=== PATIENT | male | born 1965 | race Caucasian/White ===

== ENCOUNTER → 2020-11-02 12:41 | Outpatient (CLI) | payer OTHER, SELFPAY ==
--- NOTE | 2020-11-02 | DI.RAD.S_ITS ---
PROCEDURE: XR CHEST 2V INDICATIONS: COUGH TECHNIQUE: 2 views of the chest were acquired. COMPARISON: None. FINDINGS: Surgical changes and devices: None. Lungs and pleura: Lungs are clear, aside from airspace opacity involving the left lower lobe.. No pleural effusions or pneumothorax. Mediastinum: Mediastinal contours are normal. Heart size is normal. Bones and chest wall: No suspicious bony abnormalities. Soft tissues appear unremarkable. IMPRESSION: Airspace opacity involving the left lower lobe consistent with atelectasis versus aspiration or pneumonia. Continued radiographic surveillance to resolution is recommended. Dictated by: Shamar Navarro [facility] Interpreted: Simon Parson MD on 11/02/2020 at 13:11 Transcribed by: YANIV on 11/02/2020 at 13:11 Approved by: Elbert Parson M.D. on 11/04/2020 at 7:43
== END ==
PROVIDERS: PCP Family Medicine; Referring Provider Family Medicine; Visit Provider Family Medicine
DX: R05 Cough (principal)
CPT/HCPCS: 71046

== ENCOUNTER → 2022-09-08 10:48 | Outpatient (CLI) | payer OTHER, SELFPAY ==
--- NOTE | 2022-09-08 10:50 | DI.CT.S_ITS ---
PROCEDURE: CT CHEST WO CON INDICATIONS: screening for malignant neoplasm of respiratory TECHNIQUE: Noncontrast 5 mm thick sections acquired from the pulmonary apices to the posterior costophrenic angles. 1 mm lung window, 5 mm thick coronal and sagittal and 7 mm axial MIP reformats were then acquired. For radiation dose reduction, the following was used: automated exposure control, adjustment of mA and/or kV according to patient size. COMPARISON: None. FINDINGS: Image quality: Excellent. Lungs and pleura: No acute air space opacities. No pleural effusions or pneumothorax. Central and peripheral airways are patent and normal in caliber. Mediastinum: Heart size is normal. No pericardial effusion. No mediastinal adenopathy by size criteria. Thoracic aorta and central pulmonary arteries are normal in size. Esophagus is normal in caliber. No hiatal hernia. Bones and chest wall: No suspicious bony lesions. No acute vertebral body compression fractures. Severe osteoporosis with 5 separate mild chronic vertebral body compressions. No axillary or supraclavicular adenopathy by size criteria. Thyroid gland is unremarkable . Abdomen: Upper abdominal structures visualized demonstrated a 1.6 cm nonobstructing left middle pole stone with Hounsfield measurement of 931. IMPRESSION: 1. No findings suspicious for malignancy in the chest. 2. 1.6 cm nonobstructing left renal stone. 3. Severe osteoporosis with 5 separate mild chronic vertebral body compressions. Comments: If the patient satisfies criteria for appropriate risk factors, consider yearly screening lung CT, next imaging in 12 months. Additionally, recommend DEXA bone densitometry for this patient with 5 chronic compressions. Dictated by: Jamarcus Dent M.D. on 09/08/2022 at 14:07 Approved by: Jamarcus Dent M.D. on 09/08/2022 at 14:12
== END ==
PROVIDERS: Referring Provider Nurse Practitioner Primary Care; Visit Provider Nurse Practitioner Primary Care
DX: Z12.2 Encounter for screening for malignant neoplasm of respiratory organs (principal); M81.0 Age-related osteoporosis without current pathological fracture; N20.0 Calculus of kidney
CPT/HCPCS: 71250

== ENCOUNTER → 2022-10-17 07:44 | Outpatient (CLI) | payer OTHER, SELFPAY ==
[2022-10-17 08:46] LABS: Add Manual Diff / Slide Review NO; Basophils Absolute Auto 100 /uL (0-100); Eosinophils Absolute Auto 400 /uL (0-450); Hematocrit 43.8 % (41-53); Hemoglobin 14.9 g/dL (13.5-17.5); Lymphocytes Absolute Auto 2000 /uL (1100-4500); Lymphocytes Percent Auto 25.3 % (25-40); Mean Corpuscular Hemoglobin 32.8 PG (26-34); Mean Corpuscular Volume 96.3 fL (80-100); Monocytes Absolute Auto 800 /uL (0-900); Monocytes Percent Auto 10.3 % (3-14); Neutrophils Absolute Auto 4500 /uL (1500-7000); Neutrophils Percent Auto 58.4 % (50-75); Platelet Count 212 X10^3/uL (150-400); Red Blood Cell Count 4.55 X10^6/uL (4.5-5.9); Red Cell Distribution Width 14.2 % (11.6-14.8); White Blood Cell Count 7.7 X10^3/uL (4.5-11.0)
[2022-10-17 08:50] LABS: Hemoglobin A1C% w Est Avg Glu 4.9 % (4.0-6.0)
[2022-10-17 09:30] LABS: INR 1.1 (0.9-1.3); Prothrombin Time 12.4 SECONDS (10.1-12.7)
[2022-10-17 09:41] LABS: Alanine Aminotransferase 16 IU/L (<50); Albumin Globulin Ratio 1.7 (1.0-2.8); Alkaline Phosphatase 70 U/L (38-126); Aspartate Aminotransferase 19 IU/L (17-59); BUN Creatinine Ratio 8.5 (6-22); Bilirubin Total 0.7 mg/dL (0.2-1.3); Blood Urea Nitrogen 8 mg/dL (9-20); Calcium 9.4 mg/dL (8.4-10.2); Carbon Dioxide 27 mmol/L (22-32); Chloride 105 mmol/L (98-107); Cholesterol 164 mg/dL (140-199); Estimated Glomerular Filt Rate > 60 mL/min (>60); Globulin 2.4 g/dL (1.7-4.1); Glucose 89 mg/dL (70-100); HDL Cholesterol 43 mg/dL (40-60); HEMOLYSIS < 15 (0-50); LDL Cholesterol Calculated 106 mg/dL (<100); Potassium 3.5 mmol/L (3.4-5.1); Sodium 140 mmol/L (137-145); Total Protein 6.4 g/dL (6.3-8.2); Triglycerides 76 mg/dL (35-150)
[2022-10-17 09:55] LABS: Vitamin D 25 Hydroxy (D3) 15.1 ng/mL (30.0-100.0)
[2022-10-17 10:10] LABS: Thyroid Stimulating Hormone 1.29 uIU/mL (0.47-4.68)
[2022-10-18 08:50] LABS: Parathyroid Hormone Int 53 pg/mL (15-65)
== END ==
PROVIDERS: Referring Provider Nurse Practitioner Primary Care; Visit Provider Nurse Practitioner Primary Care
DX: M81.0 Age-related osteoporosis without current pathological fracture (principal)
CPT/HCPCS: 36415; 80053; 80061; 82306; 83036; 83970; 84153; 84443; 85025; 85610

== ENCOUNTER → 2023-12-22 10:43 | Outpatient (CLI) | payer OTHER, SELFPAY ==
--- NOTE | 2023-12-22 10:44 | DI.RAD.S_ITS ---
PROCEDURE: XR DEXA AXIAL SKELETON INDICATIONS: OSTEOPOROSIS COMPARISON: None. FINDINGS: Lumbar Spine: Bone mineral density 0.790 g/cm2, T score -2.3. Right Hip: Bone mineral density 0.696 g/cm2, T score -2.0. Right Femoral Neck: Bone mineral density 0.570 g/cm2, T score -2.5. Left Forearm: Bone mineral density 0.711 g/cm2, T score 0.3. Fracture Risk Calculation (when applicable): 10-year fracture risk of a major osteoporotic fracture 21 percent and of a hip fracture 11 percent. (T score greater or equal to -1.0 to: NORMAL) (T score from -1.1 to -2.4: OSTEOPENIA) (T score less than or equal to -2.5: OSTEOPOROSIS) IMPRESSION: Osteoporosis. Follow-up guidelines as follows: Osteoporosis: Consider a repeat DEXA and Vertebral Fracture Assessment (VFA) exam in 2 years or sooner if medically necessary, to reassess this patient's status. Osteopenia: Consider a repeat DEXA in 2-3 years to reassess this patient's status, or if there is a new clinical indication. Normal: Consider a repeat DEXA in 5 years or sooner, or if there is a new clinical indication. All treatment decisions require clinical judgment and consideration of individual patient factors, including patient preferences, comorbidities, previous drug use, risk factors not captured in the FRAX model (e.g., frailty, falls, vitamin D deficiency, increased bone turnover, interval significant decline in bone density ) and possible under- or over-estimation of fracture risk by FRAX. In addition, the NOF Guide recommends that FDA-approved medical therapies be considered in postmenopausal women and men age >= 50 years with a: * Hip or vertebral (clinical or morphometric) fracture * T-score of <=-2.5 at the spine or hip * Ten-year fracture probability by FRAX of >= 3% for hip fracture or >=20% for major osteoporotic fracture. People with diagnosed cases of osteoporosis or at high risk for fracture should have regular bone mineral density tests. For patients eligible for Medicare, routine testing is allowed once every 2 years. The testing frequency can be increased to one year for patients who have rapidly progressing disease, those who are receiving or discontinuing medical therapy to restore bone mass, or have additional risk factors. Dictated by: Marquis Macdonald M.D. on 12/22/2023 at 20:29 Approved by: Marquis Macdonald M.D. on 12/22/2023 at 20:31
== END ==
LOC: RAD 10:43
PROVIDERS: Referring Provider Nurse Practitioner Primary Care; Visit Provider Nurse Practitioner Primary Care
DX: M81.0 Age-related osteoporosis without current pathological fracture (principal)
CPT/HCPCS: 77080; 77081